=== PATIENT | male | born 1965 | race Caucasian/White ===

== ENCOUNTER 2018-07-06 19:03 | Emergency (ER) | payer SELFPAY ==
[2018-07-06] MEDS ORDERED: ONDANSETRON ODT 4 MG TABLET TL STA (20:27)
--- NOTE | 2018-07-06 20:51 | ED Physician Documentation ---
History of Present Illness - Stated complaint Stated Complaint: DETOX - Chief complaint Chief Complaint: General - History obtained from History obtained from: Patient - History of Present Illness Timing: Yesterday Pain level max: 0 Pain level now: 0 Improved by: taking narcotics Worsened by: running out of narcotics - Additonal information Additional information: 53-year-old male who states he has been addicted to opiates for the last 20 years. Stopped using oxycodone 9 days ago and has been using Suboxone but ran out a day and a half ago. Now going through withdrawals. He states he has been trying to get into detox or a Suboxone clinic without success. Has had vomiting. No fevers. Also has had diarrhea Review of Systems Constitutional: denies: Fever, Chills Ears: denies: Ear pain Nose: denies: Rhinorrhea / runny nose, Congestion Throat: denies: Sore throat Cardiac: denies: Chest pain / pressure Respiratory: denies: Cough GI: reports: Nausea, Vomiting, Diarrhea. denies: Abdominal Pain : reports: Missed period. denies: Dysuria Skin: denies: Rash PD PAST MEDICAL HISTORY - Past Medical History Past Medical History: Yes Musculoskeletal: Chronic back pain - Past Surgical History Past Surgical History: Yes - Present Medications Home Medications: Ambulatory Orders Medication Instructions Recorded Confirmed Buprenorphine HCl/Naloxone HCl 1 each SL 07/06/18 [Suboxone 4 mg-1 mg Sl Film] Ondansetron Odt [Zofran] 4 mg TL Q6H PRN #10 tablet 07/06/18 - Allergies Allergies/Adverse Reactions: Allergies Allergy/AdvReac Type Severity Reaction Status Date / Time No Known Drug Allergies Allergy Verified 07/06/18 19:17 - Social History Does the pt smoke?: Yes Smoking Status: Current every day smoker Does the pt drink ETOH?: Yes Does the pt have substance abuse?: Yes Substance Use and Type: Prescription Pills - Immunizations Immunizations are current?: No Immunizations: TDAP current <10years - POLST Patient has POLST: No PD ED PE NORMAL - Vitals Vital signs reviewed: Yes - General General: Alert and oriented X 3, No acute distress - HEENT HEENT: PERRL, Moist mucous membranes - Neck Neck: Supple, no meningeal sign - Cardiac Cardiac: RRR, Strong equal pulses - Respiratory Respiratory: No respiratory distress, Clear bilaterally - Abdomen Abdomen: Soft, Non tender, Non distended - Derm Derm: Warm and dry - Extremities Extremities: No edema - Neuro Neuro: Alert and oriented X 3 - Psych Psych: Normal mood, Normal affect Results - Vitals Vitals: Vital Signs - 24 hr 07/06/18 07/06/18 19:13 21:01 Temperature 36 C L Heart Rate 106 H 103 H Respiratory 18 18 Rate Blood Pressure 156/106 H 148/99 H O2 Saturation 98 97 Oxygen O2 Source Room air PD MEDICAL DECISION MAKING - ED course Complexity details: re-evaluated patient, considered differential, d/w patient, d/w career consultant ED course: Patient is a 53-year-old male who presents to the emergency department with narcotic withdrawal. I made an appointment for him with [facility] ([facility]) in [place] for Tuesday at 10 AM. We do not have any Suboxone in the emergency department, therefore he was given a dose of methadone. I discussed the case also with Dr. Cristiane oL who works at the [facility] emergency department and will be able to see him over the weekend if he has issues. Patient is comfortable with this plan. Patient counseled regarding signs and symptoms for which I believe and urgent re-evaluation would be necessary. Patient with good understanding of and agreement to plan and is comfortable going home at this time This document was made in part using voice recognition software. While efforts are made to proofread this document, sound alike and grammatical errors may occur. Departure - Departure Disposition: 01 Home, Self Care Clinical Impression: Opiate withdrawal Condition: Good Instructions: ED Narcotic Abuse Follow-Up: Caitlyn Kauffman ARNP [Primary Care Provider] - Prescriptions: Ondansetron Odt [Zofran] 4 mg TL Q6H PRN #10 tablet PRN Reason: Nausea / Vomiting Comments: Return if you worsen. You have an appointment with [facility] in [place] at 10 AM on Tuesday. If you worsen over the , you can go see Dr. Dangelo in the emergency department at [facility] on Tuesday or Tuesday morning for a dose of suboxone. [place]: [address] [place] [address], [place] [address] Discharge Date/Time: 07/06/18 21:01
[2018-07-06] MEDS ORDERED: METHADONE 5 MG TABLET PO STA (20:52)
[2018-07-06] MEDS ORDERED: METHADONE 5 MG TABLET PO SCH (21:00)
[2018-07-06 21:02] VITALS: BP 148/99
== END 2018-07-06 21:01 | disposition home or self-care (01) ==
LOC: ED 19:03
DX: F11.20 Opioid dependence, uncomplicated (principal); F17.200 Nicotine dependence, unspecified, uncomplicated
CPT/HCPCS: 99283; A9270; Q0162

== ENCOUNTER 2019-04-17 05:17 | Outpatient (CLI) | payer MEDICAID | END 2019-04-17 05:18 | disposition critical access hospital (66) | LOC: EMS 05:17 | PROVIDERS: ATTEND Surgery | DX: R56.9 Unspecified convulsions (principal) | CPT/HCPCS: A0425; A0429; A0999 ==

== ENCOUNTER 2019-04-17 05:41 | Emergency (ER) | payer MEDICAID ==
[2019-04-17] MEDS ORDERED: SODIUM CHLORIDE 0.9% 1,000 ML IV ONE (05:58)
--- NOTE | 2019-04-17 06:06 | ED Physician Documentation ---
PD HPI SEIZURE - Stated complaint Stated Complaint: SEIZURE - Chief complaint Chief Complaint: Neuro - History obtained from History obtained from: Patient, Family, EMS - History of Present Illness Timing - onset: How many minutes ago (30), Today Witnessed: Witnessed Number of seizures: Single (Report from EMS is at the family told them they heard the patient call out from his bedroom and went in to find him having seizure-like activity that lasted for about a minute to 2. The seizure had stopped by EMS arrival and the medics report the patient was seeming very confused agitated and a little come additive. This calmed after several minutes. On route the patient is becoming more oriented. Initial blood glucose was normal.He is afebrile. Vital signs are slightly hypertensive and normal heart rate.), Lasted minutes (1-2) Description of seizure activity: Generalized, Tonic clonic, Postictal. No: Incontinent Injury during seizure: None (EMS reports the patient was on his bed on their arrival.) History of seizures: First seizure. No: Known seizure disorder, Prior TBI Contributing factors: Changed meds (He had been taking gabapentin 300 mg total daily and ran out 4 days ago. No other change in medications. He denies any drug or alcohol use. He denies any recent head injury.) Similar symptoms before: Has not had sx before Recently seen: Clinic (The patient had a injection in the finger for a Dupuytren's contracture done several months ago. He has chronic ongoing back pain and takes Suboxone 8 mg daily for that without any recent change or cessation and medicine.) Review of Systems Constitutional: denies: Fever, Myalgias Nose: denies: Rhinorrhea / runny nose, Congestion Throat: denies: Sore throat Respiratory: denies: Cough GI: reports: Nausea (He had some nausea for a day 3 to 4 days ago with a bit decreased appetite and some loose stool. He had recovered though and was back to regular activity yesterday and the day before including normal workouts. He states he felt hydrated. He felt okay going to bed last night.). denies: Abdominal Pain Musculoskeletal: denies: Neck pain, Back pain Neurologic: denies: Generalized weakness, Near syncope PD PAST MEDICAL HISTORY - Past Medical History Cardiovascular: None Respiratory: None Neuro: None Endocrine/Autoimmune: None Musculoskeletal: Chronic back pain, Other (left hand little finger contracture) - Past Surgical History Past Surgical History: Yes - Present Medications Home Medications: Ambulatory Orders Medication Instructions Recorded Confirmed Buprenorphine HCl/Naloxone HCl 1 each SL 07/06/18 [Suboxone 4 mg-1 mg Sl Film] Buprenorphine HCl/Naloxone HCl 04/17/19 [Suboxone 8 mg-2 mg Sl Film] Gabapentin 100 mg PO DAILY #15 capsule 04/17/19 traZODone [Desyrel] 50 mg PO PRN PRN 04/17/19 04/17/19 - Allergies Allergies/Adverse Reactions: Allergies Allergy/AdvReac Type Severity Reaction Status Date / Time No Known Drug Allergies Allergy Verified 07/06/18 19:17 - Living Situation Living Situation: reports: With family Living Arrangement: reports: At home - Social History Does the pt smoke?: Yes Smoking Status: Current every day smoker Does the pt drink ETOH?: No ETOH Use: Other (had had drinking problem, but no alcohol since last June. ) Does the pt have substance abuse?: No - Immunizations Immunizations are current?: No Immunizations: TDAP current <10years - POLST Patient has POLST: No PD ED PE NORMAL - Vitals Vital signs reviewed: Yes - General General: Alert and oriented X 3, No acute distress (somewhat anxious), Well developed/nourished - HEENT HEENT: Atraumatic, Moist mucous membranes, Pharynx benign, Other (mild tongue abrasions on sides) - Neck Neck: Supple, no meningeal sign, No adenopathy - Cardiac Cardiac: RRR, No murmur - Respiratory Respiratory: Clear bilaterally - Abdomen Abdomen: Soft, Non tender, Non distended - Male Male : Deferred - Rectal Rectal: Deferred - Back Back: No CVA TTP - Derm Derm: Normal color, Warm and dry - Extremities Extremities: No edema, No calf tenderness / cord, Other (splint on left little/ring finger. 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, No motor deficit, No sensory deficit, Normal speech Eye Opening: Spontaneous Motor: Obeys Commands Verbal: Oriented GCS Score: 15 Results - Vitals Vitals: Vital Signs - 24 hr 04/17/19 05:48 Temperature 36.8 C Heart Rate 93 Respiratory 17 Rate Blood Pressure 163/113 H O2 Saturation 98 Oxygen O2 Source Room air - Labs Labs: Laboratory Tests 04/17/19 04/17/19 04/17/19 06:20 06:20 06:20 WBC 4.8 RBC 4.86 Hgb 14.7 Hct 43.3 MCV 89.1 MCH 30.2 MCHC 33.9 RDW 13.2 Plt Count 190 MPV 10.6 Neut # (Auto) 3.0 Lymph # (Auto) 1.3 L [place] # (Auto) 0.4 Eos # (Auto) 0.1 Baso # (Auto) 0.0 Absolute Nucleated RBC 0.00 Nucleated RBC % 0.0 ESR Sodium 139 Potassium 3.9 Chloride 102 Carbon Dioxide 27 Anion Gap 10.0 BUN 20 Creatinine 0.7 Estimated GFR (MDRD) 118 Glucose 122 H Calcium 9.6 Magnesium 2.4 Total Bilirubin 1.2 H AST 25 ALT 24 Alkaline Phosphatase 61 Total Protein 7.4 Albumin 4.8 Globulin 2.6 Albumin/Globulin Ratio 1.8 Lipase 19 L Prolactin 14.06 Urine Color Urine Clarity Urine pH Ur Specific [place] Urine Protein Urine Glucose (UA) Urine Ketones Urine Occult Blood Urine Nitrite Urine Bilirubin Urine Urobilinogen Ur Leukocyte Esterase Ur Microscopic Review Urine Culture Comments Urine Opiates Screen Ur Oxycodone Screen Urine Methadone Screen Ur Propoxyphene Screen Ur Barbiturates Screen Ur Tricyclics Screen Ur Phencyclidine Scrn Ur Amphetamine Screen U Methamphetamines Scrn U Benzodiazepines Scrn Urine Cocaine Screen U Cannabinoids Screen Ethyl Alcohol < 5.0 04/17/19 04/17/19 06:20 06:25 WBC RBC Hgb Hct MCV MCH MCHC RDW Plt Count MPV Neut # (Auto) Lymph # (Auto) [place] # (Auto) Eos # (Auto) Baso # (Auto) Absolute Nucleated RBC Nucleated RBC % ESR 4 Sodium Potassium Chloride Carbon Dioxide Anion Gap BUN Creatinine Estimated GFR (MDRD) Glucose Calcium Magnesium Total Bilirubin AST ALT Alkaline Phosphatase Total Protein Albumin Globulin Albumin/Globulin Ratio Lipase Prolactin Urine Color YELLOW Urine Clarity CLEAR Urine pH 6.0 Ur Specific [place] 1.020 Urine Protein NEGATIVE Urine Glucose (UA) NEGATIVE Urine Ketones NEGATIVE Urine Occult Blood NEGATIVE Urine Nitrite NEGATIVE Urine Bilirubin NEGATIVE Urine Urobilinogen 0.2 (NORMAL) Ur Leukocyte Esterase NEGATIVE Ur Microscopic Review NOT INDICATED Urine Culture Comments NOT INDICATED Urine Opiates Screen NEGATIVE Ur Oxycodone Screen NEGATIVE Urine Methadone Screen NEGATIVE Ur Propoxyphene Screen NEGATIVE Ur Barbiturates Screen NEGATIVE Ur Tricyclics Screen NEGATIVE Ur Phencyclidine Scrn NEGATIVE Ur Amphetamine Screen NEGATIVE U Methamphetamines Scrn NEGATIVE U Benzodiazepines Scrn NEGATIVE Urine Cocaine Screen NEGATIVE U Cannabinoids Screen NEGATIVE Ethyl Alcohol PD MEDICAL DECISION MAKING - ED course Complexity details: reviewed results, considered differential (Will check U tox and blood sugar and electrolytes. Will get CT of the head. A good possibility is the stoppage of the gabapentin as references a looked at do list to seizure i s a possible withdrawal symptom about 2 to 3 days after stopping. He does not look to have other withdrawal type symptoms but there would still be a possibility and primary new onset seizures would be quite unusual at his age.), d/w patient Departure - Departure Disposition: 01 Home, Self Care Clinical Impression: Grand mal seizure, Medication withdrawal Condition: Stable Record reviewed to determine appropriate education?: Yes Instructions: ED Seizure New Onset Unk Cause Follow-Up: Yovany Muse DO [Primary Care Provider] - Prescriptions: Gabapentin 100 mg PO DAILY #15 capsule Comments: Your head CT and blood tests appear normal here. References I looked at to use a seizure can be related to gabapentin withdrawal. I would suggest continuing just a low dose gabapentin of 100 mg daily for another week and then every other day or just a half a dose daily for another week and then stopping. Stay well- hydrated. Other medicines as usual. At this point you may not necessarily need further work-up for seizure per se unless you have another episode. Follow-up with your primary care however to discuss it.
--- NOTE | 2019-04-17 06:26 | CT Report ---
Reason: apparent seizure Procedure Date: 04/17/2019 Accession Number: [id number] / [id number] Procedure: CT - HEAD WO CPT Code: FULL RESULT: EXAM: CT HEAD EXAM DATE: 04/17/2019 06:12 AM. CLINICAL HISTORY: Seizure. COMPARISON: None. TECHNIQUE: Multiaxial CT images were obtained from the foramen magnum to the vertex. Reformats: Sagittal and coronal. IV contrast: None. In accordance with CT protocol optimization, one or more of the following dose reduction techniques were utilized for this exam: automated exposure control, adjustment of mA and/or KV based on patient size, or use of iterative reconstructive technique. FINDINGS: Parenchyma: No intraparenchymal hemorrhage. No evidence of mass, midline shift, or CT findings of infarction. [place]ebede-white differentiation is distinct. Extraaxial Spaces: Normal for age. No subdural or epidural collections identified. Ventricles: Normal in size and position. Sinuses and Orbits: Imaged paranasal sinuses, orbits, and mastoids show no significant abnormality. Bones: No evidence of fracture or calvarial defect. Other: None. IMPRESSION: Normal head CT. RADIA
[2019-04-17 06:30] LABS: MUDS CUTOFF CONCENTRATIONS CUTOFF CONC BELOW:
[2019-04-17 06:31] LABS: BILIRUBIN,URINE NEGATIVE (NEGATIVE); GLUCOSE, URINE (UA) NEGATIVE (NEGATIVE); KETONES,URINE (UA) NEGATIVE (NEGATIVE); LEUKOCYTE ESTERASE, URINE NEGATIVE (NEGATIVE); NITRITE,URINE NEGATIVE (NEGATIVE); OCCULT BLOOD,URINE NEGATIVE (NEGATIVE); PROTEIN,URINE NEGATIVE (NEGATIVE); UROBILINOGEN,URINE 0.2 (NORMAL) E.U./dL (NORMAL)
[2019-04-17 06:32] LABS: CLARITY,URINE CLEAR (CLEAR)
[2019-04-17 06:35] LABS: BASOPHILS % (AUTO) 0.2 %; EOSINOPHILS # (AUTO) 0.1 10^3/uL (0.0-0.7); EOSINOPHILS % (AUTO) 1.5 %; HGB - HEMOGLOBIN 14.7 g/dL (14.0-18.0); LYMPHOCYTES # (AUTO) 1.3 10^3/uL (1.5-3.5); LYMPHOCYTES % (AUTO) 26.4 %; MEAN CORPUSCULAR HEMOGLOBIN 30.2 pg (27.0-31.0); MEAN CORPUSCULAR HGB CONC 33.9 g/dL (32.0-36.0); MEAN CORPUSCULAR VOLUME 89.1 fL (80.0-94.0); MEAN PLATELET VOLUME 10.6 fL (7.4-11.4); MONOCYTES # (AUTO) 0.4 10^3/uL (0.0-1.0); MONOCYTES % (AUTO) 9.1 %; NEUTROPHILS % (AUTO) 62.6 %; PLT - PLATELET COUNT 190 10^3/uL (130-450); RED BLOOD COUNT 4.86 10^6/uL (4.70-6.10); RED CELL DISTRIBUTION WIDTH 13.2 % (12.0-15.0); WHITE BLOOD COUNT 4.8 x10^3/uL (4.8-10.8)
[2019-04-17 06:44] LABS: AMPHETAMINE SCREEN,URINE NEGATIVE (NEGATIVE); BENZODIAZEPINES SCREEN, URINE NEGATIVE (NEGATIVE); COCAINE SCREEN URINE NEGATIVE (NEGATIVE); METHADONE SCREEN, URINE NEGATIVE (NEGATIVE); METHAMPHETAMINES SCREEN, URINE NEGATIVE (NEGATIVE); OPIATE SCREEN, URINE NEGATIVE (NEGATIVE); OXYCODONE SCREEN, URINE NEGATIVE (NEGATIVE); PROPOXYPHENE SCREEN, URINE NEGATIVE (NEGATIVE); TRICYCLIC ANTIDEPRESSANT,URINE NEGATIVE (NEGATIVE)
[2019-04-17 06:47] LABS: ALBUMIN 4.8 g/dL (3.2-5.5); ALBUMIN/GLOBULIN RATIO 1.8 (1.0-2.2); ALKALINE PHOSPHATASE 61 IU/L (42-121); ALT ALANINE AMINOTRANSFERASE 24 IU/L (10-60); AST ASPARTATE AMINOTRANSFERASE 25 IU/L (10-42); BILIRUBIN,TOTAL 1.2 mg/dL (0.2-1.0); BUN - BLOOD UREA NITROGEN 20 mg/dL (6-20); CALCIUM 9.6 mg/dL (8.5-10.3); CARBON DIOXIDE - CO2 27 mmol/L (21-32); CHLORIDE 102 mmol/L (101-111); CREATININE 0.7 mg/dL (0.6-1.2); GFR - MDRD 118 (>89); GLUCOSE 122 mg/dL (70-100); LIPASE 19 U/L (22-51); MAGNESIUM 2.4 mg/dL (1.7-2.8); SODIUM 139 mmol/L (135-145); TOTAL PROTEIN 7.4 g/dL (6.7-8.2)
[2019-04-17] MEDS ORDERED: GABAPENTIN 100 MG CAPSULE PO STA (07:51)
[2019-04-17 08:02] VITALS: BP 138/79
== END 2019-04-17 08:11 | disposition home or self-care (01) ==
LOC: EDUNIT# → ED 05:41
DX: G40.409 Other generalized epilepsy and epileptic syndromes, not intractable, without status epilepticus (principal); F19.939 Other psychoactive substance use, unspecified with withdrawal, unspecified; F17.200 Nicotine dependence, unspecified, uncomplicated
CPT/HCPCS: 36415; 70450; 80053; 80306; 80320; 81003; 83690; 83735; 84146; 85025; 85651; 99284; A9270; 81001; 87086

== ENCOUNTER 2020-04-27 04:44 | Outpatient (CLI) | payer MEDICAID | END 2020-04-27 04:45 | disposition critical access hospital (66) | LOC: EMS 04:44 | PROVIDERS: ATTEND Surgery | DX: R56.9 Unspecified convulsions (principal) | CPT/HCPCS: A0425; A0429; A0999 ==

== ENCOUNTER 2020-04-27 05:00 | Emergency (ER) | payer MEDICAID ==
--- NOTE | 2020-04-27 05:06 | ED Physician Documentation ---
History of Present Illness - Stated complaint Stated Complaint: SZ - History obtained from History obtained from: Patient - Additonal information Additional information: Patient is a 54-year-old male who presents via ambulance with a chief complaint of seizure that was witnessed that was generalized tonic-clonic that lasted about 30 seconds and then resolved patient reports he has a history of seizures. He has not been evaluated by neurology as of yet. He does take Suboxone. He denies any alcohol or drug use denies any reason to believe he be withdrawing from any alcohol or any substances.Patient denies headache or neck pain or fev er. Review of Systems Constitutional: reports: Reviewed and negative Eyes: reports: Reviewed and negative Ears: reports: Reviewed and negative Nose: reports: Reviewed and negative Throat: reports: Reviewed and negative Cardiac: reports: Reviewed and negative Respiratory: reports: Reviewed and negative GI: reports: Reviewed and negative : reports: Reviewed and negative Skin: reports: Reviewed and negative Musculoskeletal: reports: Reviewed and negative Neurologic: reports: Seizure Psychiatric: reports: Reviewed and negative Endocrine: reports: Reviewed and negative Immunocompromised: reports: Reviewed and negative PD PAST MEDICAL HISTORY - Past Medical History Cardiovascular: None Respiratory: None Neuro: None Endocrine/Autoimmune: None GI: Chronic constipation : Frequency HEENT: None Psych: Depression, Anxiety Musculoskeletal: Chronic back pain, Other (left hand little finger contracture) Derm: None - Past Surgical History Past Surgical History: Yes - Present Medications Home Medications: Ambulatory Orders Medication Instructions Recorded Confirmed Buprenorphine HCl/Naloxone HCl 04/17/19 [Suboxone 8 mg-2 mg Sl Film] traZODone [Desyrel] 25 mg PO PRN PRN 04/17/19 04/27/20 Levetiracetam [Keppra] 500 mg PO BID 10 Days #20 tablet 04/27/20 - Allergies Allergies/Adverse Reactions: Allergies Allergy/AdvReac Type Severity Reaction Status Date / Time No Known Drug Allergies Allergy Verified 04/27/20 05:09 - Social History Does the pt smoke?: Yes Smoking Status: Current every day smoker Does the pt drink ETOH?: No Does the pt have substance abuse?: No - Immunizations Immunizations are current?: No Immunizations: TDAP current <10years - POLST Patient has POLST: No PD ED PE NORMAL - Vitals Vital signs reviewed: Yes - General General: Alert and oriented X 3, No acute distress, Well developed/nourished - HEENT HEENT: PERRL, Moist mucous membranes - Neck Neck: Supple, no meningeal sign - Cardiac Cardiac: RRR, No murmur, Strong equal pulses - Respiratory Respiratory: No respiratory distress, Clear bilaterally - Abdomen Abdomen: Normal bowel sounds, Soft, Non tender, Non distended - Derm Derm: Warm and dry - Extremities Extremities: No deformity, No tenderness to palpate, Normal ROM s pain, No edema, No calf tenderness / cord - Neuro Neuro: Alert and oriented X 3, 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, No motor deficit, No sensory deficit, Normal speech, Other (No facial droop, no pronator drift no unilateral weakness) - Psych Psych: Normal mood, Normal affect Results - Vitals Vitals: Vital Signs - 24 hr 04/27/20 04/27/20 04/27/20 05:07 05:44 06:16 Temperature 37.4 C Heart Rate 99 72 69 Respiratory 18 18 18 Rate Blood Pressure 156/98 H 133/98 H 141/85 H O2 Saturation 98 97 94 Oxygen O2 Source Room air - Labs Labs: Laboratory Tests 04/27/20 04/27/20 05:45 05:45 WBC 6.7 RBC 4.77 Hgb 15.2 Hct 44.1 MCV 92.5 MCH 31.9 H MCHC 34.5 RDW 13.7 Plt Count 173 MPV 10.3 Neut # (Auto) 4.5 Lymph # (Auto) 1.2 L [place] # (Auto) 0.8 Eos # (Auto) 0.1 Baso # (Auto) 0.0 Absolute Nucleated RBC 0.00 Nucleated RBC % 0.0 Sodium 139 Potassium 3.7 Chloride 104 Carbon Dioxide 28 Anion Gap 7.0 BUN 11 Creatinine 0.7 Estimated GFR (MDRD) 118 Glucose 96 Calcium 9.2 Total Bilirubin 1.1 H AST 36 ALT 35 Alkaline Phosphatase 114 Total Protein 6.6 L Albumin 4.1 Globulin 2.5 Albumin/Globulin Ratio 1.6 Lipase 18 L PD MEDICAL DECISION MAKING - ED course Complexity details: reviewed results, re-evaluated patient (iv keppra given, will start on outpatient keppra. referral to neurology and pcp.), considered differential, d/w patient ED course: 54-year-old male with a history of seizures was seen here about a year ago and had a negative CT scan of the head he has been unable to get into a neurologist due to COVID. He does take Suboxone. Denies taking any other chronic medications denies any alcohol use or alcohol withdrawal or any substance use currently.He denies any trauma or fevers or headache or neck pain feels asymptomatic currently. Departure - Departure Disposition: 01 Home, Self Care Clinical Impression: Seizure Condition: Stable Instructions: ED Seizure Recurrent Follow-Up: Adiel Marquez MD [Provider Admit Priv/Credential] - Tomorrow Rhys Vance MD [Physician No Access] - Tomorrow Prescriptions: Levetiracetam [Keppra] 500 mg PO BID 10 Days #20 tablet Comments: Please follow-up with a primary care provider. Please call neurologist dr. rhys vance at [phone] to schedule follow up as well. take keppra as directed.
[2020-04-27] MEDS ORDERED: levETIRAcetam INJ 1,000 MG in SODIUM CHLORIDE 0.9% 100ML 100 ML IV STA (05:13)
[2020-04-27 05:53] LABS: BASOPHILS % (AUTO) 0.3 %; EOSINOPHILS # (AUTO) 0.1 10^3/uL (0.0-0.7); EOSINOPHILS % (AUTO) 2.1 %; HGB - HEMOGLOBIN 15.2 g/dL (14.0-18.0); LYMPHOCYTES # (AUTO) 1.2 10^3/uL (1.5-3.5); LYMPHOCYTES % (AUTO) 18.4 %; MEAN CORPUSCULAR HEMOGLOBIN 31.9 pg (27.0-31.0); MEAN CORPUSCULAR HGB CONC 34.5 g/dL (32.0-36.0); MEAN CORPUSCULAR VOLUME 92.5 fL (80.0-94.0); MEAN PLATELET VOLUME 10.3 fL (7.4-11.4); MONOCYTES # (AUTO) 0.8 10^3/uL (0.0-1.0); MONOCYTES % (AUTO) 11.9 %; NEUTROPHILS # (AUTO) 4.5 10^3/uL (1.5-6.6); PLT - PLATELET COUNT 173 10^3/uL (130-450); RED BLOOD COUNT 4.77 10^6/uL (4.70-6.10); RED CELL DISTRIBUTION WIDTH 13.7 % (12.0-15.0); WHITE BLOOD COUNT 6.7 x10^3/uL (4.8-10.8)
[2020-04-27 06:05] LABS: ALBUMIN 4.1 g/dL (3.2-5.5); ALBUMIN/GLOBULIN RATIO 1.6 (1.0-2.2); BILIRUBIN,TOTAL 1.1 mg/dL (0.2-1.0); CALCIUM 9.2 mg/dL (8.5-10.3); CREATININE 0.7 mg/dL (0.6-1.2); TOTAL PROTEIN 6.6 g/dL (6.7-8.2)
[2020-04-27 06:17] VITALS: BP 141/85
== END 2020-04-27 06:35 | disposition home or self-care (01) ==
LOC: EDUNIT# → EDBD → ED 05:00
DX: R56.9 Unspecified convulsions (principal); F17.200 Nicotine dependence, unspecified, uncomplicated
CPT/HCPCS: 36415; 80053; 83690; 85025; 96365; 99283

== ENCOUNTER 2023-04-21 00:30 | Outpatient (CLI) | payer MEDICAID | END 2023-04-21 00:31 | disposition critical access hospital (66) | LOC: EMS 00:30 | DX: R56.9 Unspecified convulsions (principal) | CPT/HCPCS: A0425; A0429; A0999 ==

== ENCOUNTER 2023-04-21 00:48 | Emergency (ER) | payer MEDICAID ==
--- NOTE | 2023-04-21 01:05 | ED Physician Documentation ---
History of Present Illness - Stated complaint Stated Complaint: SZ - Additonal information Additional information: Patient 57-year-old male presenting to the emergency department with chief complaint of seizure. He is brought in by EMS from [place] [facility]. Past medical significant for seizure disorder for which he takes Lamictal as well as opiate dependence for which she is currently taking Suboxone. Had a seizure 3 weeks ago, at that time reported that he was not compliant with his medications. He does report that he had been using his medications regularly until a few days ago. Reports it has been 3-4 days since his last dose of his Lamictal. Is not certain exactly how much he takes. Does report that he follows with neurology at [facility]. Denies any alcohol abuse, head trauma, fever, neck stiffness. Is otherwise been drinking and eating well. Review of Systems Constitutional: denies: Fever Ears: denies: Loss of hearing Nose: denies: Rhinorrhea / runny nose Throat: denies: Dental pain / toothache Cardiac: denies: Chest pain / pressure Respiratory: denies: Dyspnea GI: denies: Abdominal Pain : denies: Dysuria Skin: denies: Rash Musculoskeletal: denies: Neck pain Neurologic: reports: Seizure PD PAST MEDICAL HISTORY - Past Medical History Cardiovascular: None Respiratory: None Neuro: None Endocrine/Autoimmune: None GI: Chronic constipation : Frequency HEENT: None Psych: Depression, Anxiety Musculoskeletal: Chronic back pain, Other (left hand little finger contracture) Derm: None - Past Surgical History Past Surgical History: Yes - Present Medications Home Medications: Ambulatory Orders Medication Instructions Recorded Confirmed Buprenorphine HCl/Naloxone HCl 04/17/19 [Suboxone 8 mg-2 mg Sl Film] traZODone [Desyrel] 25 mg PO PRN PRN 04/17/19 04/27/20 Levetiracetam [Keppra] 500 mg PO BID 10 Days #20 tablet 04/27/20 - Allergies Allergies/Adverse Reactions: Allergies Allergy/AdvReac Type Severity Reaction Status Date / Time No Known Drug Allergies Allergy Verified 04/21/23 01:01 - Social History Does the pt smoke?: Yes Smoking Status: Current every day smoker Does the pt drink ETOH?: No Does the pt have substance abuse?: No - Immunizations Immunizations are current?: No Immunizations: TDAP current <10years - POLST Patient has POLST: No PD ED PE NORMAL - General General: Alert and oriented X 3, No acute distress, Well developed/nourished, Other - HEENT HEENT: Atraumatic, PERRL, EOMI, Ears normal, Moist mucous membranes, Pharynx benign, Dentition benign - Neck Neck: Supple, no meningeal sign, No bony TTP, No adenopathy, Thyroid normal, No JVD, No bruit - Cardiac Cardiac: RRR, No gallop - Respiratory Respiratory: No respiratory distress, Clear bilaterally - Abdomen Abdomen: Normal bowel sounds, Non tender - Male Male : Deferred - Rectal Rectal: Deferred - Derm Derm: Normal color - Extremities Extremities: No deformity - Neuro Neuro: Alert and oriented X 3, transition mgr 2-12 intact, No motor deficit, Normal speech Results - Vitals Vitals: Vital Signs - 24 hr 04/21/23 00:56 Temperature 37.1 C Heart Rate 102 H Respiratory 20 Rate Blood Pressure 178/103 H O2 Saturation 92 Oxygen O2 Source Room air - Labs Labs: Laboratory Tests 04/21/23 04/21/23 01:13 01:13 WBC 8.1 RBC 4.84 Hgb 14.9 Hct 43.0 MCV 88.8 MCH 30.8 MCHC 34.7 RDW 13.3 Plt Count 219 MPV 10.0 Neut # (Auto) 5.2 Lymph # (Auto) 2.0 Sawyer # (Auto) 0.7 Eos # (Auto) 0.1 Baso # (Auto) 0.0 Absolute Nucleated RBC 0.00 Nucleated RBC % 0.0 Sodium 139 Potassium 3.4 L Chloride 102 Carbon Dioxide 29 Anion Gap 8.0 BUN 7 Creatinine 0.8 Estimated GFR (MDRD) 100 Glucose 143 H Calcium 9.2 Total Bilirubin 0.8 AST 81 H ALT 94 H Alkaline Phosphatase 107 Total Protein 6.6 Albumin 4.2 Globulin 2.4 Albumin/Globulin Ratio 1.8 Lipase 7 L PD Medical Decision Making - ED course Complexity details: reviewed results, considered differential, d/w patient ED course: Patient is 57-year-old male presenting to the emergency department with report of seizure. This is in setting of known history of seizure disorder for which she was prescribed Lamictal. He endorsed for history of noncompliance with this medication. Also reports regularly takes Suboxone. Denied any alcohol abuse. On arrival to the emergency department he reported feeling well. No focal or lateralizing neurologic deficits. No nuchal rigidity appreciated. Labs demonstrated a mild elevation in LFTs. I will give him a dose of Lamictal here. I will have him follow-up with his primary care doctor and neurologist. I will strongly encourage him to use his medications as prescribed. Otherwise clear return precautions given. Departure - Departure Disposition: Home, Self Care Clinical Impression: Seizure, Noncompliance with medication regimen, Elevated LFTs, Homelessness Instructions: Epilepsy Self Care, Epilepsy Safety During Seizure, Epilepsy Meds Comments: Thank you for allowing us to care for you today [facility]. Today in the emergency department your evaluated for any possible life- threatening medical emergency. It is very important that you take your Lamictal as prescribed. Your lab work showed a mild elevation in liver function enzymes. This will need to be followed up by your primary care doctor. I recommend avoidance of alcohol. Please do not drive motor vehicles, swim alone or engage in other high risk activities until cleared by neurology. If it anytime you have new or worsening symptoms please do not hesitate to return.
[2023-04-21] MEDS ORDERED: lamoTRIgine 100 MG TABLET PO ONE (01:10)
[2023-04-21 01:16] LABS: BASOPHILS % (AUTO) 0.4 %; EOSINOPHILS # (AUTO) 0.1 10^3/uL (0.0-0.7); EOSINOPHILS % (AUTO) 1.6 %; HGB - HEMOGLOBIN 14.9 g/dL (14.0-18.0); LYMPHOCYTES % (AUTO) 25.2 %; MEAN CORPUSCULAR HEMOGLOBIN 30.8 pg (27.0-31.0); MEAN CORPUSCULAR HGB CONC 34.7 g/dL (32.0-36.0); MEAN CORPUSCULAR VOLUME 88.8 fL (80.0-94.0); MONOCYTES # (AUTO) 0.7 10^3/uL (0.0-1.0); MONOCYTES % (AUTO) 8.2 %; NEUTROPHILS # (AUTO) 5.2 10^3/uL (1.5-6.6); NEUTROPHILS % (AUTO) 64.1 %; PLT - PLATELET COUNT 219 10^3/uL (130-450); RED BLOOD COUNT 4.84 10^6/uL (4.70-6.10); RED CELL DISTRIBUTION WIDTH 13.3 % (12.0-15.0); WHITE BLOOD COUNT 8.1 x10^3/uL (4.8-10.8)
[2023-04-21 01:34] LABS: ALBUMIN 4.2 g/dL (3.2-5.5); ALBUMIN/GLOBULIN RATIO 1.8 (1.0-2.2); BILIRUBIN,TOTAL 0.8 mg/dL (0.2-1.0); CALCIUM 9.2 mg/dL (8.5-10.3); CREATININE 0.8 mg/dL (0.6-1.3); POTASSIUM 3.4 mmol/L (3.5-4.5); TOTAL PROTEIN 6.6 g/dL (6.4-8.9)
[2023-04-21 02:27] VITALS: BP 153/100; O2SAT 95
== END 2023-04-21 02:24 | disposition home or self-care (01) ==
LOC: EDUNIT# → ED 00:48
DX: R56.9 Unspecified convulsions (principal); R74.01 Elevation of levels of liver transaminase levels; Z91.148 Patient's other noncompliance with medication regimen for other reason; Z59.02 Unsheltered homelessness; F17.200 Nicotine dependence, unspecified, uncomplicated
CPT/HCPCS: 36415; 80053; 80175; 83690; 85025; 99283; 99284; A9270